=== PATIENT | male | born 1995 | race Caucasian/White ===

== ENCOUNTER 2019-08-10 19:32 | Emergency (ER) | payer SELFPAY ==
--- NOTE | 2019-08-10 20:18 | ER Document Report ---
ED Medical Screen (RME) - General Chief Complaint: Psych Problem Stated Complaint: PSYCH Time Seen by Provider: 08/10/19 20:11 TRAVEL OUTSIDE OF THE [place] IN LAST 30 DAYS: No - HPI Notes: 08/10/19 20:17 Patient is a 24-year-old male with no significant past medical history who presents with father complaining of visual and auditory hallucinations for the past 1.5 years, undiagnosed. Patient states that over the past few weeks he has noticed increased in these hallucinations. Patient is mentally aware that they are not real, but they are bothersome. Patient states that on occasion he will have some SI without any planning. No HI. He is able to eat and drink without difficulty. He is urinating normally. No injury, fever, or recent illness. No chest pain or shortness of breath. Patient denies drug use aside from cigarettes and marijuana. I have treated and performed a rapid initial assessment of this patient. A comprehensive ED assessment and evaluation of the patient, analysis of test results and completion of medical decision making process will be conducted by additional ED providers. PHYSICAL EXAMINATION: GENERAL: Well-appearing, well-nourished and in no acute distress. A&Ox4. Answers questions appropriately. Neuro: Cranial nerves grossly intact. Psych: Normal mood. Adequate eye contact. Patient does have some fidgetiness noted. - Related Data Allergies/Adverse Reactions: No Known Allergies Allergy (Verified 08/10/19 20:09) Past Medical History - Social History Frequency of alcohol use: None Drug Abuse: Marijuana - Immunizations Hx Diphtheria, Pertussis, Tetanus Vaccination: Yes Physical Exam - Vital signs Vitals: Temp Pulse Resp BP Pulse Ox 99.1 F 102 H 18 154/85 H 97 08/10/19 20:01 08/10/19 20:01 08/10/19 20:01 08/10/19 20:01 08/10/19 20:01 Course - Vital Signs Vital signs: Temp Pulse Resp BP Pulse Ox 99.1 F 102 H 18 154/85 H 97 08/10/19 20:01 08/10/19 20:01 08/10/19 20:01 08/10/19 20:01 08/10/19 20:01
[2019-08-10 21:00] LABS: ABSOLUTE BASOPHILS # (AUTO) 0.1 10^3/uL (0.0-0.2); ABSOLUTE EOSINOPHILS # (AUTO) 0.1 10^3/uL (0.0-0.6); ABSOLUTE LYMPHOCYTES (AUTO) 2.3 10^3/uL (0.5-4.7); ABSOLUTE NEUT (AUTO) 12.6 10^3/uL (1.7-8.2); BASOPHILS % (AUTO) 0.5 % (0-2); EOSINOPHILS % (AUTO) 0.6 % (0-6); HEMATOCRIT 48.6 % (37.9-51.0); HEMOGLOBIN 16.9 g/dL (13.5-17.0); LYMPHOCYTES % (AUTO) 14.6 % (13-45); MEAN CORPUSCULAR HEMOGLOBIN 30.8 pg (27.0-33.4); MEAN CORPUSCULAR HGB CONC 34.7 g/dL (32.0-36.0); MEAN CORPUSCULAR VOLUME 89 fl (80-97); PLATELET COUNT 272 10^3/uL (150-450); RED BLOOD COUNT 5.48 10^6/uL (4.35-5.55); RED CELL DISTRIBUTION WIDTH 12.9 % (11.5-14.0); SEGMENTED NEUTROPHILS % (AUTO) 78.3 % (42-78); TOTAL CELLS COUNTED % (AUTO) 100 %; WHITE BLOOD COUNT 16.1 10^3/uL (4.0-10.5)
[2019-08-10 21:20] LABS: ALBUMIN 5.1 g/dL (3.5-5.0); ALKALINE PHOSPHATASE 68 U/L (38-126); ANION GAP 10 (5-19); ASPARTATE AMINO TRANSFERASE 21 U/L (17-59); BILIRUBIN,TOTAL 0.8 mg/dL (0.2-1.3); BLOOD UREA NITROGEN 16 mg/dL (7-20); CARBON DIOXIDE 27 mmol/L (22-30); CHLORIDE 104 mmol/L (98-107); GLUCOSE 86 mg/dL (75-110); POTASSIUM 4.7 mmol/L (3.6-5.0); TOTAL PROTEIN 7.8 g/dL (6.3-8.2)
[2019-08-10 21:21] LABS: ACETAMINOPHEN < 10 ug/mL (10-30); ALCOHOL < 10 mg/dL (NONE DETECTED); SALICYLATE < 1.0 mg/dL (2.0-20.0)
[2019-08-10 21:36] LABS: APPEARANCE,URINE CLOUDY; BILIRUBIN,URINE NEGATIVE (NEGATIVE); COLOR,URINE AMBER; GLUCOSE, URINE NEGATIVE (NEGATIVE); KETONES,URINE NEGATIVE (NEGATIVE); LEUKOCYTE ESTERASE,URINE NEGATIVE (NEGATIVE); NITRITE,URINE NEGATIVE (NEGATIVE); PROTEIN,URINE 30 mg/dL (NEGATIVE); URINE SPECIFIC GRAVITY 1.025
[2019-08-10 21:48] LABS: URINE AMPHETAMINES SCREEN NEGATIVE; URINE BARBITURATES SCREEN NEGATIVE; URINE BENZODIAZEPINES SCREEN NEGATIVE; URINE COCAINE SCREEN NEGATIVE; URINE METHADONE SCREEN NEGATIVE; URINE PHENCYCLIDINE SCREEN NEGATIVE
[2019-08-10 21:50] LABS: URINE MARIJUANA (THC) SCREEN UNCONFIRMED POSITIVE
[2019-08-10] MEDS ORDERED: CHLORPROMAZINE HCL 50 MG TABLET PO ONE (23:00)
--- NOTE | 2019-08-10 23:03 | ER Document Report ---
ED Psych Disorder / Suicide - General TRAVEL OUTSIDE OF THE [place] IN LAST 30 DAYS: No <SIRENA DAVIS - Last Filed: 08/11/19 01:01> <AGUILA VELAZQUEZ - Last Filed: 08/11/19 15:23> <ELMER CESAR - Last Filed: 08/11/19 15:50> - General Chief Complaint: Psych Problem Stated Complaint: PSYCH Time Seen by Provider: 08/10/19 20:11 Notes: CHIEF COMPLAINT: Visual and auditory hallucinations HPI: 24-year-old male presenting to the emergency department complaining of a multiyear history of hearing voices, seeing things that are not there including bright lights. States that the voices are telling him things all the time, denies that they tell him to hurt others or hurt himself. Patient states that if he had thoughts of hurting himself he would just go ahead and do it. He does not have a definitive plan to hurt himself at this time. States that he had been talking to his father juan carlos who convinced him to come to the emergency department to have this evaluated. Denies physical complaints at this time ROS: See HPI - all other systems were reviewed and are otherwise negative Constitutional: no fever Eyes: no drainage, no blurred vision ENT: no runny nose, no sore throat Cardiovascular: no chest pain Resp: no SOB, no cough GI: no vomiting, no diarrhea, no abdominal pain : no dysuria Integumentary: no rash Allergy: no hives Musculoskeletal: no extremity pain or swelling Neurological: no numbness/tingling, no weakness MEDICATIONS: I agree with the patient medications as charted by the RN. ALLERGIES: I agree with the allergies as charted by the RN. PAST MEDICAL HISTORY/PAST SURGICAL HISTORY: Reviewed and agree as charted by RN. SOCIAL HISTORY: Reviewed and agree as charted by RN. FAMILY HISTORY: No significant familial comorbid conditions directly related to patient complaint EXAM: Reviewed vital signs as charted by RN. CONSTITUTIONAL: Alert and oriented and responds appropriately to questions. Well-appearing; well-nourished, no acute distress HEAD: Normocephalic; atraumatic EYES: PERRL; Conjunctivae clear, sclerae non-icteric ENT: normal nose; no rhinorrhea; moist mucous membranes; pharynx without lesions noted, no uvula edema or deviation, no tonsillar hypertrophy, phonation normal NECK: Supple without meningismus; non-tender; no cervical lymphadenopathy, no masses CARD: RRR; no murmurs, no clicks, no rubs, no gallops; symmetric distal pulses RESP: Normal chest excursion without splinting or tachypnea; breath sounds clear and equal bilaterally; no wheezes, no rhonchi, no rales, pulse oximetry 97% on room air not hypoxic ABD/GI: Normal bowel sounds; non-distended; soft, non-tender, no rebound, no guarding; no palpable organomegaly or masses. BACK: The back appears normal and is non-tender to palpation, there is no CVA tenderness EXT: Normal ROM in all joints; non-tender to palpation; no cyanosis, no effusions, no edema SKIN: Normal color for age and race; warm; dry; good turgor; no acute lesions noted NEURO: Moves all extremities equally; Motor and sensory function intact PSYCH: The patient's mood and manner are slightly agitated. Grooming and personal hygiene are appropriate. Does admit to hearing voices continuously as well as occasionally seeing lights and objects that are not there MDM: 24-year-old male presenting with visual and auditory hallucinations that have possibly been ongoing for several years. He is mildly agitated at this time will give patient a dose of Thorazine. He is otherwise cooperative. His lab work is positive for marijuana, mild leukocytosis that is nonspecific he is otherwise medically cleared for psychiatric service consultation. (SIRENA DAVIS) - Related Data Allergies/Adverse Reactions: No Known Allergies Allergy (Verified 08/10/19 20:09) Past Medical History - Social History Smoking Status: Current Every Day Smoker Frequency of alcohol use: None Drug Abuse: Marijuana Family History: Reviewed & Not Pertinent Patient has suicidal ideation: Yes Patient has homicidal ideation: No - Immunizations Hx Diphtheria, Pertussis, Tetanus Vaccination: Yes <SIRENA DAVIS - Last Filed: 08/11/19 01:01> Physical Exam - Vital signs Vitals: Temp Pulse Resp BP Pulse Ox 99.1 F 102 H 18 154/85 H 97 08/10/19 20:01 08/10/19 20:01 08/10/19 20:01 08/10/19 20:01 08/10/19 20:01 Course - Laboratory Result Diagrams: 08/10/19 20:40 08/10/19 20:40 <SIRENA DAVIS - Last Filed: 08/11/19 01:01> - Laboratory Result Diagrams: 08/10/19 20:40 08/10/19 20:40 <AGUILA VELAZQUEZ - Last Filed: 08/11/19 15:23> - Laboratory Result Diagrams: 08/10/19 20:40 08/10/19 20:40 <ELMER CESAR - Last Filed: 08/11/19 15:50> - Re-evaluation Re-evalutation: 08/11/19 01:01 Notified by nursing that patient is still hallucinating in the room talking to the spirits. Had no changes with Thorazine, will trial Haldol (SIRENA DAVIS) - Vital Signs Vital signs: Temp Pulse Resp BP Pulse Ox 97.8 F 102 H 15 112/67 96 08/11/19 09:12 08/11/19 09:12 08/11/19 09:12 08/11/19 09:12 08/11/19 09:12 - Laboratory Laboratory results interpreted by me: 08/10/19 08/10/19 08/10/19 20:40 20:40 20:40 WBC 16.1 H Absolute Neuts (auto) 12.6 H Seg Neutrophils % 78.3 H Albumin 5.1 H TSH 0.42 L Urine Protein Urine Urobilinogen Salicylates < 1.0 L Acetaminophen < 10 L 08/10/19 21:00 WBC Absolute Neuts (auto) Seg Neutrophils % Albumin TSH Urine Protein 30 H Urine Urobilinogen 4.0 H Salicylates Acetaminophen Discharge <SIRENA DAVIS - Last Filed: 08/11/19 01:01> <CAROLINEAGUILA - Last Filed: 08/11/19 15:23> <ELMER CESAR - Last Filed: 08/11/19 15:50> - Discharge Clinical Impression: Hallucinations Condition: Stable Disposition: HOME, SELF-CARE Additional Instructions: You have been evaluated by both medical and behavioral health teams for auditory and visual hallucinations and suicidal ideation and have been deemed appropriate for discharge. [place]acian recommendations have been provided and are as follows: Haldol 5MG, twice a day and Cogentin 1MG, daily. Please take your medications as prescribed as the medication appear to have stabilized your mood and overall mental health. Please do not stop these medications without discussing with your prescribing physician. While in the emergency department you received the following services: Medical screening and assessment, nursing services, dietary services, pharmacological services, one-on-one counseling and/or psychotherapy, environmental services, and continuous observation by a patient safety net maker. Please continue to work collaboratively with [facility] as you establish with a mental health provider for medication management and mental health services. You are encouraged to work with mental health provider to learn how to accurately interpret and respond to your environment, thoughts, and emotions. You have been provided with a mental health resource list. You are highly encouraged to abstain from illicit substance use and the use of Kratom. Hand written prescriptions were given to the patient, as [employer] was down at the time of discharge. AT ANY TIME, IF YOUR SYMPTOMS CHANGE SIGNIFICANTLY OR WORSEN OR YOU DEVELOP NEW SYMPTOMS, RETURN TO THE EMERGENCY DEPARTMENT IMMEDIATELY FOR RE-EVALUATION.
--- NOTE | 2019-08-10 23:27 | EKG REPORT ---
SEVERITY:- NORMAL ECG - SINUS RHYTHM : Confirmed by: Ry Avalos MD 10-Aug-2019 23:26:58
[2019-08-11] MEDS ORDERED: HALOPERIDOL 5 MG TABLET PO ONE (01:01)
[2019-08-11] MEDS ORDERED: ALBUTEROL SULFATE HFA (90 MCG/PUFF) 8 GM MDI (1 MDI/ER DISP) IH PRN (14:10)
--- NOTE | 2019-08-11 14:13 | ER Document Report ---
Doctor's Note Notes: 08/11/19 14:10 PHYSICAL EXAMINATION: GENERAL: Appears well, healthy, well-nourished, no acute distress. LUNGS: Equal breath sounds mild expiratory wheezes noted in all lung sosa. Denies any shortness of breath. CARDIOVASCULAR: S1-S2, regular rate, regular rhythm. Radial pulses 2+, normal. ABDOMEN: Normoactive bowel sounds. Soft, nontender, no guarding, no rebound tenderness, and no masses palpated. PSYCH: Normal mood, normal affect. Recommendations by [facility] is for the patient to receive Cogentin and Haldol. These orders will be placed. Patient also has wheezes noted in all lung sosa. I will order him an albuterol inhaler. He denies any shortness of breath. Patient is a smoker. Plan is to discharge after the patient receives Cogentin and see if he has any reactions to the medication. 08/11/19 15:31 Patient did well with his Cogentin and Haldol. I will refill his medication for the next 2 weeks. He will follow-up with mental health patient. He is in agreement with this plan. Follow-up precautions were given. Verbal discharge instructions were given to the patient. They verbalized understanding. They are stable for discharge.
[2019-08-11] MEDS ORDERED: BENZTROPINE MESYLATE 1 MG TABLET PO SCH (14:15)
--- NOTE | 2019-08-11 14:35 | PSYCHOLOGICAL NOTE ---
Psych Note - Psych Note Date seen by psych provider: 08/11/19 Time seen by psych provider: 07:50 Psych Note: Patient is a 24-year-old male who presents to ED via POV with concerns for auditory and visual hallucinations and suicidal ideation with no plan. Patient states he is here in the ED to have a head CT scan. Patient denies current auditory/visual hallucinations. Patient states the voices are worse when it is quiet. Patient states he "does not really hear them a lot." Patient denies command auditory hallucinations and describe the voices as "trying to control and possess me." Patient states he "sees bright colors." As evaluation progressed, patient stated the auditory and visual hallucination cause disruption to him being able to work, concentrate, and sleep. Patient states he is able to tell the difference between auditory and visual hallucinations. Patient reports no mental health history in childhood. Patient states he dropped out of high school when he turned 19. Patient is not linked with a mental health provider for medication management and mental health services. [facility] is collaborating with patient and family for services. Patient has a history of substance use. Patient is guarded with disclosures of substances used, duration, and frequency. Patient states he uses Kratom, patient is vague with disclosures regarding duration and frequency of use. Patient initially told patient he used "3 doses" of Kratom for a year and a half to self medicate opioid withdrawals. Clinician spoke with patient's parents who state patient has been "hearing and seeing things that aren't there." Mother states adonay endorsed suicidal ideation with no plan because the voices "were driving him crazy." Mother reports no mental health concerns in childhood. Patient has a history of substance abuse, specifically meth, beginning in age 15-16. Mother states she has heard patient screaming "leave me along, just leave" when he was in a room alone. Mother states patient and family were informed to come to the ED for a head CT scan by [facility]. Clinician spoke with patient and father together who are requesting discharge. Father states patient has experienced auditory/visual hallucinations for a while. Patient became guarded with disclosures regarding substance abuse with father in the room. Father and patient confirmed that [facility] asked them to come to the ED in order to have a head CT scan conducted. Clinician provided psychoe ducation to patient regarding substance abuse. Patient was encouraged to refrain from all illicit substance use and use of kratom. Patient was informed substances, especially methamphetamines, can alter the brain. She was provided psychoeducation regarding kratom toxicity. Can conducted with patient. Patient states he is feeling "normal." Patient reports no experiences of auditory visual hallucinations in the emergency department. Reports no side effects from medication. Patient and father report no concerns with discharge. Patient states he has a job lined up with a [employer] service. Patient is alert and oriented to person, place, time and circumstance. Mood is eurythmic with congruent affect. Patient denies suicidal and homicidal ideations. Delusions are absent and behavior is congruent with an intact reality based presentation (i.e., organized and linear through processes). There is no observed behavior that suggests patient is responding to internal stimuli. Patient is able to engage in organized, rational thought processes. Patient is able to express needs and wants in a logical manner. Patient denies current auditory and visual hallucinations. Eye contact is appropriate. Conversational speech is within normal rate, tone, and prosody. Intellectual ability appears to be within average range. Attention and concentration are good. Insight, judgment and impulse control are currently good. Medication recommendations per [facility] contracted psychiatrist Dr. Amarilis MD are as follows: Add Haldol 5MG, twice a day Add Cogentin 1MG, daily Impression/Plan: Patient is cleared from acute psychiatric services. Medication recommendations have been provided. Patient denies suicidal and homicidal ideations. There is no observed behavior that suggests patient is responding to internal stimuli. Patient engaged in organized, rational, linear thought processes and was able to express needs and wants in a logical manner. Patient has not been observed engaging with internal stimuli while in the ED. Patient is linked with [facility] and will be collaborating with [facility] for linkage to a mental health provider in the community. Patient was encouraged to follow-up with a mental health provider that can perform a full psychological work-up to rule out kratom toxicity and/or abstinence induced psychosis. Dr. Rao was consulted on the care and management of this patient; attending physician is in agreement with recommendations and disposition.
[2019-08-11] MEDS ORDERED: NICOTINE 21 MG/24 HR PATCH.TD24 TD ONE (15:09)
[2019-08-11 15:21] LABS: FREE T3 2.92 pg/mL (2.77-5.27); FREE T4 (FREE THYROXINE) 1.14 ng/dL (0.78-2.19)
[2019-08-11 16:15] VITALS: BP 135/76
[2019-08-11] MEDS ORDERED: HALOPERIDOL 5 MG TABLET PO SCH (18:00)
== END 2019-08-11 15:45 | disposition home or self-care (01) ==
LOC: ER 19:32
DX: R44.0 Auditory hallucinations (principal); R44.1 Visual hallucinations; R45.851 Suicidal ideations; R06.2 Wheezing; D72.829 Elevated white blood cell count, unspecified; F17.200 Nicotine dependence, unspecified, uncomplicated; F12.10 Cannabis abuse, uncomplicated
CPT/HCPCS: 93005; 99285; 84439; 36415; 80307 ×4; 84443; 85025; 80053; 81001; 84481; 93010; J3490 ×2